=== PATIENT | male | born 1980 | race Caucasian/White ===

== ENCOUNTER 2019-05-15 14:23 | Emergency (ER) | payer OTHER ==
[~2019-05-15] VITALS: Ht 185.4 cm; Wt 88.6 kg
[2019-05-15] MEDS ORDERED: BACL10TA2 PO (14:54)
[2019-05-15] MEDS ORDERED: KETO10TAB PO (14:54)
[2019-05-15] MEDS ORDERED: METH125VL IM (16:11)
[2019-05-15] MEDS ORDERED: BUSP10TA PO (16:11)
[2019-05-15] MEDS ORDERED: SERO400T PO (16:11)
[2019-05-15] MEDS ORDERED: PRAZ2CAP PO (16:11)
[2019-05-15] MEDS ORDERED: CYCLOBENZAPRINE 5MG TABLET PO ONE (17:15)
[2019-05-15] MEDS ORDERED: KETOROLAC 30 MG/ML VIAL (J1885) IM ONE (17:15)
[2019-05-15] MEDS ORDERED: ACETAMINOPHEN 500 MG TAB PO ONE (17:15)
[2019-05-15] MEDS ORDERED: LIDOCAINE 5% (LIDODERM) PATCH TD ONE (17:45)
[2019-05-15 18:08] VITALS: BP 110/69
[2019-05-15] MEDS ORDERED: **NOTE PATIENT COMMENT** MISC XX SCH (21:00)
== END 2019-05-15 18:16 | disposition home or self-care (01) ==
LOC: M ED 14:23
DX: S39.012A Strain of muscle, fascia and tendon of lower back, initial encounter (principal); G89.29 Other chronic pain; M54.9 Dorsalgia, unspecified; X50.0XXA Overexertion from strenuous movement or load, initial encounter; Y92.9 Unspecified place or not applicable; Y93.89 Activity, other specified; Y99.9 Unspecified external cause status; K25.9 Gastric ulcer, unspecified as acute or chronic, without hemorrhage or perforation; Z72.0 Tobacco use; Z79.899 Other long term (current) drug therapy; Z88.5 Allergy status to narcotic agent
CPT/HCPCS: 96372; 99283; J1885